=== PATIENT | female | born 1950 ===

== ENCOUNTER → 2017-06-07 | Outpatient (CLI) | payer BC | END | disposition home or self-care (01) | LOC: KCIC MRI 13:49 | DX: M48.061 Spinal stenosis, lumbar region without neurogenic claudication (principal); M51.36 Other intervertebral disc degeneration, lumbar region; G89.29 Other chronic pain | CPT/HCPCS: 72148 ==

== ENCOUNTER → 2019-09-03 | Outpatient (CLI) | payer BC ==
--- NOTE | 2019-09-03 14:03 | KCIC ---
THORACIC SPINE WO CONTRAST History:Reason: STENOSIS / Spl. Instructions: / History: Progressing middle back pain without known injury. Technique: Multiplanar, multi sequential noncontrast MR imaging was performed of the thoracic spine. Comparison: None Findings: Normal vertebral body height and alignment. No fracture. No pathologic signal abnormality within the thoracic spinal cord. Partially imaged level cervical spondylosis. Mild multilevel degenerative disc changes. Tiny disc protrusion T2-T3 and T6-T7. No significant canal narrowing. Mild cord flattening T6-T7 and T2-T3. Upper thoracic mild facet arthropathy. No significant neural foraminal narrowing. Soft tissues unremarkable. Impression: 1. Mild multilevel thoracic spondylosis most prominent T2-T3 and T6-T7 with mild cord flattening. No significant canal or neuroforaminal narrowing. Electronically signed by: Grayson Valle DO (09/03/2019 2:01 PM) [id number]
== END ==
LOC: KCIC MRI 12:26
PROVIDERS: ATTEND Neurological Surgery
DX: M47.813 Spondylosis without myelopathy or radiculopathy, cervicothoracic region (principal)
CPT/HCPCS: 72146

== ENCOUNTER → 2019-09-12 | Outpatient (CLI) | payer BC ==
--- NOTE | 2019-09-12 15:01 | KCIC ---
CERVICAL SPINE WO CONTRAST DATE: 09/12/2019 12:00 AM INDICATION: Reason: CERVICAL STENOSIS, PAIN , Pain for 5 yrs., pain from Tsp down through her legs. TECHNIQUE: Multiplanar multisequence magnetic resonance imaging of the cervical spine was performed without administration of intravenous contrast using the standard cervical spine protocol. COMPARISON: None. FINDINGS: Motion artifact degrades image quality. Straightening of the cervical lordosis. No acute fracture. Moderate multilevel degenerative disc desiccation and disc height loss. Degenerative endplate edema at T1 to. The spinal cord is normal in signal intensity, allowing for motion artifact. On the limited views of the cranial cavity and brain, the cerebellum and tony have normal morphology and signal characteristics. No Chiari malformation. No soft tissue abnormality. Normal signal voids are present in the vertebral arteries. C2-3: Moderate left facet arthropathy. Mild left neural foraminal narrowing. No spinal canal stenosis. C3-4: Disc osteophyte complex. Uncovertebral hypertrophy. Severe left facet arthropathy. Mild right and severe left neural foraminal narrowing. Mild spinal canal stenosis. C4-5: Disc osteophyte complex. Uncovertebral hypertrophy. Mild facet arthropathy. Moderate right and moderate to severe left neural foraminal narrowing. Mild to moderate spinal canal stenosis. C5-6: Disc osteophyte complex. Uncovertebral hypertrophy. Mild facet arthropathy. Moderate bilateral neural foraminal narrowing. Mild to moderate spinal canal stenosis. C6-7: Disc osteophyte complex. Uncovertebral hypertrophy. Mild facet arthropathy. Mild neural foraminal narrowing. No spinal canal stenosis. C7-T1: No significant spinal canal stenosis or neural foraminal narrowing. IMPRESSION: Moderate to severe cervical spondylosis, detailed level by level above. Electronically signed by: Gee Andrew MD (09/12/2019 2:58 PM) [id number]
== END | disposition home or self-care (01) ==
LOC: KCIC MRI 13:05
PROVIDERS: ATTEND Neurological Surgery
DX: M47.812 Spondylosis without myelopathy or radiculopathy, cervical region (principal); M50.30 Other cervical disc degeneration, unspecified cervical region; M25.78 Osteophyte, vertebrae; M48.02 Spinal stenosis, cervical region
CPT/HCPCS: 72141